=== PATIENT | female | born 1955 | race Caucasian/White ===

== ENCOUNTER 2017-02-12 13:25 | Observation (INO) | payer OTHER ==
[~2017-02-12] VITALS: Ht 149.9 cm; Wt 88.8 kg
[~2017-02-12 13:25] MED LIST: CLONAZEPAM0.5 M1 PO; DIABETA1.25 MG PO; GLUCOPHAGE500 MG PO; KEFLEX500 MG PO; NOHOMEMEDS; ULTRAM50 MG PO
[2017-02-12 14:00] LABS: EOSINOPHIL (%) 1.8 % (0-5); EOSINOPHIL COUNT 0.2 K/uL (0-0.3); HEMATOCRIT 41.4 % (36.0-46.0); IMMATURE GRANULOCYTE (%) 0.5 % (0.0-0.7); IMMATURE GRANULOCYTE COUNT 0.1 K/uL; INSTRUMENT ABS NEUTROPHIL CT 7.2 K/uL; LYMPHOCYTE COUNT 2.8 K/uL (1.0-2.8); MCH 26.7 PG (29.0-34.0); MCHC 33.3 G/DL (30.0-36.0); MCV 80.2 FL (83-99); MEAN PLAT.VOLUME 10.5 uM^3 (9.5-12.4); MONOCYTE (%) 5.2 % (3-12); MONOCYTE COUNT 0.6 K/uL (0-0.8); NEUTROPHIL (%) 66.2 % (45-76); NEUTROPHIL COUNT 7.2 K/uL (1.8-6.4); PLATELET COUNT 270 K/uL (156-360); RBC DIS.WIDTH-CV 13.5 % (11.8-14.6); RBC DIS.WIDTH-SD 39.6 % (39-53); RED BLOOD COUNT 5.16 M/uL (3.80-5.20); WHITE BLOOD COUNT 10.8 K/uL (4.1-10.2)
[2017-02-12 14:09] LABS: CHLORIDE 107 mEq/L (99-109); POTASSIUM 4.2 mEq/L (3.7-5.4); SODIUM 140 mEq/L (136-147)
[2017-02-12 14:11] LABS: GLUCOSE 159 mg/dL (70-99)
[2017-02-12 14:12] LABS: ANION GAP 11 MEQ/L (2-14)
[2017-02-12 14:13] LABS: TOTAL BILIRUBIN 0.2 mg/dL (0.0-1.0)
[2017-02-12 14:14] LABS: ALKALINE PHOSPHATASE 123 IU/L (3-129)
[2017-02-12 14:15] LABS: GFR ESTIMATE (CALCULATED) > 59 mL/min/
[2017-02-12 14:16] LABS: UREA NITROGEN (BUN) 20 mg/dL (9-23)
[2017-02-12 14:18] LABS: LIPASE 24 U/L (1.0-51.0)
[2017-02-12 14:21] LABS: TROP-I INTERPRETATION NEGATIVE; TROPONIN-I < 0.01 ng/mL (0.0-0.30)
[2017-02-12] MEDS ORDERED: GABAPENTIN100 MG PO (15:18)
[2017-02-12 17:30] LABS: SAMPLE HEMOLYSIS CHECK 0; SAMPLE ICTERIC CHECK 0; SAMPLE LIPEMIA CHECK 1
[2017-02-12 17:35] LABS: HDL CHOLESTEROL 35 MG/DL (Desirable>=50); LDL CHOLESTEROL 75 mg/dL (Desirable<100); NON-HDL CHOLESTEROL 128 mg/dL (Desirable<160); TOTAL CHOLESTEROL 163 mg/dL (Desirable<200); TRIGLYCERIDES 265 MG/DL (Normal: <150)
[2017-02-12 20:41] VITALS: BP 131/69
[2017-02-12 22:54] LABS: POINT-OF-CARE METER ID UU13113700
[2017-02-13 00:02] VITALS: BP 123/67
[2017-02-13 01:52] LABS: TROP-I INTERPRETATION NEGATIVE; TROPONIN-I < 0.01 ng/mL (0.0-0.30)
[2017-02-13 05:00] VITALS: BP 118/61
[2017-02-13 06:54] LABS: HEMATOCRIT 41.1 % (36.0-46.0); MCH 26.9 PG (29.0-34.0); MCHC 32.8 G/DL (30.0-36.0); PLATELET COUNT 251 K/uL (156-360); RBC DIS.WIDTH-SD 41.6 % (39-53); RED BLOOD COUNT 5.01 M/uL (3.80-5.20)
[2017-02-13 07:15] LABS: ALKALINE PHOSPHATASE 98 IU/L (3-129); ANION GAP 10 MEQ/L (2-14); CHLORIDE 108 MEQ/L (99-109); GFR ESTIMATE (CALCULATED) > 59 mL/min/; GLUCOSE 181 mg/dL (70-99); POTASSIUM 4.1 MEQ/L (3.7-5.4); SAMPLE HEMOLYSIS CHECK 0; SAMPLE ICTERIC CHECK 0; SAMPLE LIPEMIA CHECK 0; SODIUM 139 MEQ/L (136-147); TOTAL BILIRUBIN 0.3 MG/DL (0.0-1.0); UREA NITROGEN (BUN) 22 mg/dL (9-23)
[2017-02-13 07:19] LABS: Estimated Average Glucose 166 mg/dL (70-123); HEMOGLOBIN A1c (GLYCOHEMOGLOB) 7.4 % HGB (Below 5.7)
[2017-02-13 07:24] LABS: TROP-I INTERPRETATION NEGATIVE; TROPONIN-I < 0.01 ng/mL (0.0-0.30)
[2017-02-13 08:31] LABS: POINT-OF-CARE METER ID UU13113831
[2017-02-13 09:17] LABS: D-DIMER ELISA 0.25 mg/L FEU (< 0.57)
[2017-02-13 09:58] VITALS: BP 117/58
== END 2017-02-13 11:15 | disposition home or self-care (01) ==
LOC: EME 13:25 → EDOF 16:43 → 5WEST 16:43
PROVIDERS: Emergency Medicine; Internal Medicine; Nurse Practitioner Adult Health
DX: R07.2 Precordial pain (principal); E78.5 Hyperlipidemia, unspecified; Z88.2 Allergy status to sulfonamides; E11.40 Type 2 diabetes mellitus with diabetic neuropathy, unspecified; K21.9 Gastro-esophageal reflux disease without esophagitis; R06.02 Shortness of breath
CPT/HCPCS: 71020; 80053; 80061; 82948; 83036; 83690; 83880; 84484; 85025; 85027; 85379; 93005; 93306; 99281; 99285; G0378; J1650; J2270; J2405